=== PATIENT | male | born 1990 | race Caucasian/White ===

== ENCOUNTER 2018-12-21 00:47 | Emergency (ER) | payer OTHER ==
[2018-12-21] MEDS ORDERED: Ketorolac 60 MG/2 ML SDV IM ONE (01:04)
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
[2018-12-21 01:40] LABS: CHLORIDE,CL 103 mmol/L (98-107); SODIUM,NA 139 mmol/L (136-148)
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
[2018-12-21] MEDS ORDERED: Bacitracin Oint 1 GM U/D Packet TOP ONE (02:07)
[2018-12-21] MEDS ORDERED: Sulfamethoxazole/Trimethoprim 800-160 MG Tab PO ONE (02:07)
== END 2018-12-21 02:25 | disposition home or self-care (01) ==
LOC: MW.ED 00:47
DX: T24.502A Corrosion of first degree of unspecified site of left lower limb, except ankle and foot, initial encounter (principal); T24.501A Corrosion of first degree of unspecified site of right lower limb, except ankle and foot, initial encounter; L03.116 Cellulitis of left lower limb
CPT/HCPCS: 36415; 73590; 80053; 82550; 85025; 96372; 99283; A9270; J1885